=== PATIENT | female | born 2000 | race Caucasian/White ===

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

== ENCOUNTER 2018-01-12 12:05 | Inpatient (IN) | payer BC ==
[2018-01-12] MEDS: BUTORPHANOL 2 MG/ML INJ (J0595) IV (00:10)
[2018-01-12] MEDS: PROMETHAZINE INJ 25 MG/ML VIAL (J2550) IV (00:10)
[2018-01-12 13:41] LABS: HEMATOCRIT 39.1 % (36.0-47.0); HEMOGLOBIN 12.6 g/dl (12.0-15.5); MEAN CORPUSCULAR HEMOGLOBIN 23.3 pg (27.0-33.0); MEAN CORPUSCULAR HGB CONC 32.2 g/dl (32.0-36.5); MEAN CORPUSCULAR VOLUME 72.3 fl (80.0-96.0); PLATELET COUNT, AUTOMATED 232 10^3/uL (150-450); RED BLOOD COUNT 5.41 10^6/uL (4.00-5.40); RED CELL DISTRIBUTION WIDTH 14.6 % (11.5-14.5); WHITE BLOOD COUNT 10.3 10^3/uL (4.0-10.0)
[2018-01-12] MEDS: miSOPROStol 50 MCG 1/2 TAB (S0191) SL ×3 (13:47→22:29)
[2018-01-12] MEDS: LACTATED RINGER'S 1000 ML IV (15:45)
[2018-01-13] MEDS: hydrOXYzine 50 MG TAB PO (00:06)
[2018-01-13] MEDS: OXYTOCIN DRIP 30 UNITS in APPROPRIATE DILUENT 1 EA IV ×2 (09:23→22:35)
[2018-01-13] MEDS: PENICILLIN G POTASSIUM IV 5 MU in D5W MINI-BAG PLUS 100 ML IV (09:27)
[2018-01-13] MEDS: LR 1,000 ML IV ×2 (09:28→19:44)
[2018-01-13] MEDS ORDERED: FENTANYL 2MCG/ML ROPIVACAINE 0.2% IN 0.9% NACL 200ML IVBAG As Ordered (13:23)
[2018-01-13] MEDS: PENICILLIN G POTASSIUM IV 2.5 MU in APPROPRIATE DILUENT 1 EA IV ×2 (13:29→17:22)
[2018-01-13] MEDS ORDERED: diphenhydrAMINE INJ 50MG/ML VIAL (J1200) IV (14:30)
[2018-01-13] MEDS ORDERED: FENTANYL/ROPIVACAINE/NACL BAG 200 ML EPIDURAL (14:30)
[2018-01-13] MEDS ORDERED: EPIDURAL/PCA KEYS XX (14:30)
[2018-01-13] MEDS ORDERED: EPIDURAL COMMENT XX (14:30)
[2018-01-13] MEDS ORDERED: REFRIGERATOR IV KEYS XX (14:30)
[2018-01-13] MEDS ORDERED: NALOXONE INJ 0.4 MG/1 ML VIAL (J2310) IV (14:30)
[2018-01-13] MEDS ORDERED: ONDANSETRON 4MG/2ML VIAL (J2405) IV ×2 (14:30→22:45)
[2018-01-13] MEDS ORDERED: LACTATED RINGER'S 1000 ML IV (14:30)
[2018-01-13] MEDS: ePHEDrine SULFATE 25 MG/5 ML(5MG/ML) SYRINGE IV (16:04)
[2018-01-13] MEDS ORDERED: PROMETHAZINE 25 MG TAB PO (22:45)
[2018-01-13] MEDS ORDERED: MEASLES,MUMPS,RUBELLA VACCINE INJ (MMR-II) (90707) SC (22:45)
[2018-01-13] MEDS ORDERED: RHOGAM 300 MCG (1500 IU) INJ (J2790) IM (22:45)
[2018-01-14] MEDS: DOCUSATE SODIUM 100 MG CAP PO (02:34)
[2018-01-14] MEDS: IBUPROFEN 800 MG TAB PO ×2 (02:49→13:39)
[2018-01-14] MEDS: DIBUCAINE 1% OINTMENT 30GM TOP (02:50)
[2018-01-14] MEDS: PRENATAL VITAMINS CHEWABLE TABLET PO (09:00)
[2018-01-14] MEDS: ACETAMINOPHEN 500 MG TAB PO ×2 (09:45→18:13)
[2018-01-15] MEDS: IBUPROFEN 800 MG TAB PO ×2 (00:14→08:48)
[2018-01-15] MEDS: PRENATAL VITAMINS CHEWABLE TABLET PO (08:48)
[2018-01-15] MEDS: DOCUSATE SODIUM 100 MG CAP PO (08:48)
== END 2018-01-15 13:30 | disposition home or self-care (01) | DRG 560 ==
LOC: M LDI 12:05 → M OBS 01-14 00:36
PROVIDERS: Advanced Practice Midwife
PROC: 3E0DXGC Introduction of Other Therapeutic Substance into Mouth and Pharynx, External Approach (ICD-10-PCS; 2018-01-12)
PROC: 10E0XZZ Delivery of Products of Conception, External Approach (ICD-10-PCS; principal; 2018-01-13)
PROC: 0HQ9XZZ Repair Perineum Skin, External Approach (ICD-10-PCS; 2018-01-13)
DX: O48.0 Post-term pregnancy (principal); Z37.0 Single live birth; Z3A.41 41 weeks gestation of pregnancy; O99.820 Streptococcus B carrier state complicating pregnancy; O69.82X0 Labor and delivery complicated by other cord entanglement, without compression, not applicable or unspecified; O70.0 First degree perineal laceration during delivery